=== PATIENT | male | born 1970 | race African-American/Black ===

== ENCOUNTER 2022-12-14 15:49 | Inpatient (IN) | payer OTHER ==
[2022-12-14 16:43] VITALS: BMI 21.4
[2022-12-14] MEDS ORDERED: MAG HYDROX/AL HYDROX/SIMETH 30 ML UNIT-DOSE CUP PO PRN (17:26)
[2022-12-14] MEDS ORDERED: BENZONATATE 200 MG CAPSULE PO PRN (17:26)
[2022-12-14] MEDS ORDERED: ONDANSETRON *ODT* 4 MG TABLET SL PRN (17:26)
[2022-12-14] MEDS ORDERED: NICOTINE POLACRILEX 2 MG GUM BUC PRN (17:26)
[2022-12-14] MEDS ORDERED: BISMUTH SUBSALICYLATE 524 MG/30 ML PO PRN (17:26)
[2022-12-14] MEDS ORDERED: DICYCLOMINE HCL 10 MG CAPSULE PO PRN (17:26)
[2022-12-14] MEDS ORDERED: ACETAMINOPHEN 325 MG TABLET (FP) PO PRN ×2 (17:26)
[2022-12-14] MEDS ORDERED: P-EPHED 60MG/TRIPROLIDI 2.5MG TABLET PO PRN (17:26)
[2022-12-14] MEDS ORDERED: guaiFENesin 600 MG TABLET.ER (FP) PO PRN (17:26)
[2022-12-14] MEDS ORDERED: MAGNESIUM HYDROX 2400MG/30ML ORAL SUSPENSION 30 ML CUP PO PRN (17:26)
[2022-12-14] MEDS ORDERED: LOPERAMIDE HCL 2 MG CAPSULE PO PRN (17:26)
[2022-12-14] MEDS ORDERED: BENZOCAINE/MENTHOL (CHLORASEPTIC ) LOZENGE MM PRN (17:26)
[2022-12-14] MEDS ORDERED: POLYETHYLENE GLYCOL (HEALTHYLAX) 3350 17 GM PACKET PO PRN (17:26)
[2022-12-14] MEDS ORDERED: chlordiazePOXIDE HCL 25 MG CAPSULE PO PRN (17:28)
[2022-12-14] MEDS ORDERED: chlordiazePOXIDE HCL 25 MG CAPSULE ONE (19:26)
[2022-12-14] MEDS ORDERED: chlordiazePOXIDE HCL 25 MG CAPSULE PO ONE (19:30)
[2022-12-14] MEDS: THIAMINE HCL 100 MG TABLET (FP) PO SCH (22:33)
[2022-12-14] MEDS: chlordiazePOXIDE HCL 25 MG CAPSULE PO SCH (23:02)
[2022-12-14] MEDS: MELATONIN 5 MG TABLETS PO PRN (23:04)
[2022-12-15] MEDS ORDERED: LORazepam 0.5 MG TABLET PO PRN
[2022-12-15] MEDS: chlordiazePOXIDE HCL 25 MG CAPSULE PO SCH ×2 (05:27→10:20)
[2022-12-15] MEDS: PRENATAL VITAMINS W/ FOLIC ACID TABLET (FP) PO SCH (10:19)
[2022-12-15 12:29] LABS: HEMATOCRIT 35.1 % (35.4-49); HEMOGLOBIN 11.9 GM/dL (11.7-16.9); MCH 32.9 pg (25.7-33.7); MEAN PLT VOLUME 8.1 fl (7.5-11.1); PLATELET COUNT 168 10^3/uL (134-434); RBC 3.62 M/mm3 (4.00-5.60); RDW 15.4 % (11.9-15.9); WHITE BLOOD COUNT 4.3 K/mm3 (4.0-10.0)
[2022-12-15 12:33] LABS: CALCIUM 8.3 mg/dL (8.5-10.1)
[2022-12-15 12:34] LABS: ALBUMIN 3.3 g/dl (3.4-5.0); BLOOD UREA NITROGEN 7.6 mg/dL (7-18)
[2022-12-15 12:36] LABS: CREATININE 0.8 mg/dL (0.55-1.3)
[2022-12-15 12:38] LABS: TOT PROT 6.2 g/dl (6.4-8.2)
[2022-12-15] MEDS: IBUPROFEN 400 MG TABLET (FP) PO PRN (13:45)
[2022-12-15] MEDS ORDERED: POTASSIUM CHLORIDE ORAL LIQUID 20 MEQ/15 ML PO ONE ×2 (14:31→19:00)
[2022-12-15] MEDS: LORazepam 1 MG TABLET PO SCH ×2 (17:50→22:15)
[2022-12-15] MEDS: MELATONIN 5 MG TABLETS PO PRN (22:15)
[2022-12-15] MEDS: THIAMINE HCL 100 MG TABLET (FP) PO SCH (22:15)
[2022-12-15] MEDS: IBUPROFEN 600 MG TABLET (FP) PO PRN (22:17)
[2022-12-16] MEDS ORDERED: chlordiazePOXIDE HCL 25 MG CAPSULE PO SCH (05:00)
[2022-12-16] MEDS: LORazepam 0.5 MG TABLET PO SCH ×4 (05:20→22:33)
[2022-12-16] MEDS: hydrOXYzine PAMOATE 25 MG CAPSULE (FP) PO PRN ×2 (05:23→22:34)
[2022-12-16] MEDS: IBUPROFEN 600 MG TABLET (FP) PO PRN (05:23)
[2022-12-16] MEDS: PRENATAL VITAMINS W/ FOLIC ACID TABLET (FP) PO SCH (10:38)
[2022-12-16] MEDS: IBUPROFEN 400 MG TABLET (FP) PO PRN (10:41)
[2022-12-16 11:01] LABS: POTASSIUM 3.6 mmol/L (3.5-5.1)
[2022-12-16 11:06] LABS: BILIRUBIN,DIRECT 0.3 mg/dL (0.0-0.2)
[2022-12-16 11:08] LABS: BILIRUBIN,TOTAL 0.6 mg/dL (0.2-1)
[2022-12-16] MEDS: metoPROLOL SUCCINATE 25 MG TAB.SR.24H (FP) PO SCH (17:32)
[2022-12-16] MEDS: METHOCARBAMOL 500 MG TABLET PO PRN ×2 (18:05→22:33)
[2022-12-16] MEDS: GABAPENTIN 100 MG CAPSULE PO SCH (22:33)
[2022-12-16] MEDS: MELATONIN 5 MG TABLETS PO PRN (22:34)
[2022-12-16] MEDS: THIAMINE HCL 100 MG TABLET (FP) PO SCH (22:34)
[2022-12-17] MEDS ORDERED: chlordiazePOXIDE HCL 10 MG CAPSULE PO PRN
[2022-12-17] MEDS ORDERED: chlordiazePOXIDE HCL 10 MG CAPSULE PO SCH (05:00)
[2022-12-17] MEDS ORDERED: LORazepam 0.5 MG TABLET PO ONE (05:00)
[2022-12-17] MEDS: METHOCARBAMOL 500 MG TABLET PO PRN ×2 (05:35→17:32)
[2022-12-17] MEDS: metoPROLOL SUCCINATE 25 MG TAB.SR.24H (FP) PO SCH (10:25)
[2022-12-17] MEDS: GABAPENTIN 100 MG CAPSULE PO SCH ×2 (10:25→22:07)
[2022-12-17] MEDS: PRENATAL VITAMINS W/ FOLIC ACID TABLET (FP) PO SCH (10:25)
[2022-12-17] MEDS: THIAMINE HCL 100 MG TABLET (FP) PO SCH (22:07)
[2022-12-17] MEDS: hydrOXYzine PAMOATE 25 MG CAPSULE (FP) PO PRN (22:07)
[2022-12-17] MEDS: MELATONIN 5 MG TABLETS PO PRN (22:07)
[2022-12-18] MEDS ORDERED: chlordiazePOXIDE HCL 10 MG CAPSULE PO SCH (05:00)
[2022-12-18] MEDS ORDERED: LORazepam 0.5 MG TABLET PO ONE (06:00)
[2022-12-18 06:19] VITALS: BP 140/93; PULSE 81; RESP 16; TEMP 97.8
[2022-12-19] MEDS ORDERED: chlordiazePOXIDE HCL 10 MG CAPSULE PO ONE (05:00)
== END 2022-12-18 08:54 | disposition home or self-care (01) | DRG 775 ==
LOC: YASAS 15:49 → Y3N 20:01
PROVIDERS: ADMIT Allergy & Immunology; ATTEND Surgery
PROC: HZ2ZZZZ Detoxification Services for Substance Abuse Treatment (ICD-10-PCS; principal; 2022-12-14)
DX: F10.230 Alcohol dependence with withdrawal, uncomplicated (principal); F10.220 Alcohol dependence with intoxication, uncomplicated; F17.210 Nicotine dependence, cigarettes, uncomplicated; E87.6 Hypokalemia; I10 Essential (primary) hypertension; M54.50 Low back pain, unspecified; G89.29 Other chronic pain; R74.8 Abnormal levels of other serum enzymes; R73.03 Prediabetes
CPT/HCPCS: 36415; 72100-TC-FY; 80053; 80076; 82962; 84132; 85027; 86780; C9803-CS; U0003; U0005